=== PATIENT | female | born 1970 | race Caucasian/White ===

== ENCOUNTER 2016-07-21 22:14 | Emergency (ER) | payer OTHER ==
[~2016-07-21] VITALS: Ht 175.3 cm; Wt 98.9 kg
[2016-07-21 22:51] LABS: ABSOLUTE BASOPHIL COUNT 0 /CUMM (0.0-0.2); ABSOLUTE EOSINOPHIL COUNT 0.1 /CUMM (0.0-0.7); ABSOLUTE GRANULOCYTE CT 6.1 /CUMM (1.4-6.5); ABSOLUTE LYMPH COUNT 1.7 /CUMM (1.2-3.4); ABSOLUTE MONOCYTE COUNT 0.5 /CUMM (0.10-0.60); BASOPHIL % 0.3 % (0.0-2.0); EOSINOPHIL % 1.3 % (0-5); HEMATOCRIT 41.5 % (37-47); MEAN CORPUSCULAR HGB 31.8 PG (27.0-31.0); MEAN CORPUSCULAR HGB CONC 33.9 G/DL (33.0-37.0); MEAN CORPUSCULAR VOLUME 93.7 FL (81.0-99.0); MEAN PLATELET VOLUME 8.2 FL (7.4-10.4); PLATELET COUNT 255 /CUMM (130-400); RBC DISTRIBUTION WIDTH 13.1 % (11.5-14.5); RED BLOOD CELL CT 4.43 /CUMM (4.20-5.40); WHITE BLOOD CELL COUNT 8.5 /CUMM (4.8-10.8)
[2016-07-21 22:58] LABS: GRANULOCYTE % 72.2 % (42.2-75.2)
--- NOTE | 2016-07-21 23:33 | ED CARDIAC/CP/PALPITATIONS ---
History of Present Illness General Chief Complaint: Chest Pain Stated Complaint: CP, DIZZY, SOB, LEFT SIDED NUMB/TINGLING Source: patient Exam Limitations: no limitations Vital Signs & Intake/Output Vital Signs & Intake/Output Vital Signs Date Time Temp Pulse Resp B/P Pulse O2 O2 Flow FiO2 Ox Delivery Rate 07/22 0355 97.5 80 18 123/76 98 Room Air 07/22 0015 88 18 122/88 99 Room Air 07/21 2357 100 Room Air 07/21 2224 98.2 102 20 148/100 100 Room Air Room Air ED Intake and Output 07/22 0000 07/21 1200 Intake Total Output Total Balance Patient 218 lb Weight Allergies Coded Allergies: MDX - Clarithromycin (From BIAXIN) (Intermediate, RAPID PULSE 11/26/10) Reconcile Medications Estradiol (Vivelle-Dot) 0.05 MG/24 HOUR PATCH.TDSW MENOPAUSE (Reported) Norethindrone (Aygestin) 5 MG TABLET 1 TAB PO DAILY MENOPAUSE (Reported) Triage Note: TRIAGE: 46 Y/O FEMALE PRESENTS C/O 09/27 MIDSTERNAL CHEST PAIN, RADIATING TO LEFT RASTAFARI, LEFT JAW, LEFT ARM, LEFT PINKY. REPORTS ONSET X1 WEEK. REPORTS PAIN INCREASED AT 7PM THIS EVENING. REPORTS HAS BEEN SOB X1 WEEK WELL. REPORTS HISTORY OF ANXIETY, TOOK 0.5MG XANAX AT 1915. TOLERATED WELL. EKG COMPLETED IN [place]. Triage Nurses Notes Reviewed? yes Onset: Abrupt Duration: better Timing: single episode today Quality/Severity: moderate Location: substernal : No Patient currently breastfeeds: No HPI: Patient is a 46-year-old female with a past medical history of menopause currently taking medications of exogenous estrogen and has an anxiety disorder currently taking Xanax who presents emergency and that for a remote. Time patient has had at least once a day symptoms of anxiety such as racing heart palpitations jittery feeling and paresthesia in which today symptoms began at 1915 while patient was at rest of increased anxiety flushed sensation, left arm pain and paresthesia and chest heaviness. Patient states that the chest heaviness lasted for approximately 2 hours which has completely resolved and all symptoms have improved however patient still is complaining of mild left arm paresthesia. Patient did take Xanax at the time for his symptoms with improvement. Patient did have similar episode of severity approximate one year ago which patient was evaluated at [place] emergency room in which she was advised to follow up with cardiology which patient did follow up with Dr. Meza and received Holter monitor and stress test showing unremarkable findings. Patient does state that symptoms today were more worse and duration and severity. Patient does have a family history of myocardial infarction of father dying at the age of 64. Denies any illicit drug use denies any alcohol use or smoking history. Denies any history of DVT PE leg swelling hemoptysis Denies any fevers, chills, nausea vomiting (LEVON MINAYA) Past History Travel History Traveled to [facility] past 21 day No Medical History Any Pertinent Medical History? see below for history Psychiatric: anxiety Tetanus Vaccine: Surgical History Surgical History: non-contributory Psychosocial History What is your primary language Irish Tobacco Use: Never used ETOH Use: denies use Illicit Drug Use: denies illicit drug use Family History Hx Contributory? No (LEVON MINAYA) Review of Systems Review of Systems Constitutional: Reports: no symptoms. EENTM: Reports: no symptoms. Respiratory: Reports: see HPI. Cardiovascular: Reports: see HPI. GI: Reports: no symptoms. Genitourinary: Reports: no symptoms. Musculoskeletal: Reports: no symptoms. Skin: Reports: no symptoms. Neurological/Psychological: Reports: see HPI. Hematologic/Endocrine: Reports: no symptoms. Immunologic/Allergic: Reports: no symptoms. All Other Systems: Reviewed and Negative (LEVON MINAYA) Physical Exam Physical Exam General Appearance: well developed/nourished, no apparent distress, alert, comfortable Cardiovascular: regular rate/rhythm Comments: Well-developed well-nourished person in no acute distress HEENT: Normal EENT exam, extraocular motion intact, no nystagmus. Pupils equally round and reactive to light and accommodation. Nose is atraumatic. External auditory canal and Tympanic membranes clear. Pharynx normal. No swelling or edema. Neck: Supple, no lymphadenopathy, normal range of motion without pain or tenderness Back: Nontender, no CVA tenderness. Cardiovascular: Regular rate and rhythms no murmurs rubs or gallops, normal JVP Respiratory: Chest nontender. No respiratory distress.breath sounds clear to auscultation bilaterally Abdomen: Soft, nontender nondistended, no appreciable organomegaly. Normal bowel sounds. No ascites Extremity: No edema, no calf tenderness to palpation, normal and equal pulses. Neuro: Alert oriented x3, motor sensory normal, cranial nerves II through XII grossly intact. Skin: No appreciable rash on exposed skin, skin is warm and dry. Psych: Mood and affect is normal, memory and judgment is normal. Core Measures ACS in differential dx? Yes Severe Sepsis Present: No Septic Shock Present: No (HERBERTH MORENO,LEVON) Progress Differential Diagnosis: AMI, aortic dissection, atrial fibrillation, cholecystitis, CHF/pulm edema, costochondritis, hyperkalemia, hypovolemia, hyperthyroid, hyperventilation, intracranial hemorrhage, musculoskeletal pain, myocarditis, pancreatitis, pericarditis, pneumonia, pneumothorax, PSVT, pulmonary embolism, PUD/GERD, PVCs/PACs, respiratory failure, rib fracture, sepsis, unstable angina, V-fib/V-Tach, WPW syndrome Plan of Care: Orders Procedure Date/time Status TROPONIN LEVEL 07/22 033 Complete EKG 07/22 033 Active Add-on Test (ER Only) 07/21 2349 Active Add-on Test (ER Only) 07/21 2334 Active Add-on Test (ER Only) 07/21 2323 Active THYROID STIMULATING HORMONE 07/21 2245 Complete THYROXINE 07/21 2245 Complete HUMAN BETA HCG SCREEN 07/21 2245 Complete D-DIMER 07/21 2245 Complete TROPONIN LEVEL 07/21 222 Complete COMPREHENSIVE METABOLIC PANEL 07/21 2227 Complete CBC WITHOUT DIFFERENTIAL 07/21 2226 Complete EKG 07/21 2215 Active Laboratory Tests 07/22/16 0336: Troponin I < 0.01 07/21/16 2245: Anion Gap 12, Estimated GFR > 60, BUN/Creatinine Ratio 18.6, Glucose 132 H, Calcium 9.3, Total Bilirubin 0.4, AST 25, ALT 32, Alkaline Phosphatase 59, Troponin I < 0.01, Total Protein 6.8, Albumin 4.0, Globulin 2.8, Albumin/ Globulin Ratio 1.4, TSH 3.030, Thyroxine (T4) 7.8, Total Beta HCG NEGATIVE, D- Dimer < 200, CBC w Diff NO MAN DIFF REQ, RBC 4.43, MCV 93.7, MCH 31.8 H, RDW 13.1, MPV 8.2, Gran % 72.2, Lymphocytes % 19.9 L, Monocytes % 6.3, Eosinophils % 1.3, Basophils % 0.3, Absolute Granulocytes 6.1, Absolute Lymphocytes 1.7, Absolute Monocytes 0.5, Absolute Eosinophils 0.1, Absolute Basophils 0, PUBS MCHC 33.9 Patient currently is in no apparent distress. Patient was put on bus driver/monitor noted to be in normal sinus rhythm pressure was noted to be 122/88 manually by nursing staff Patient's first set of cardiac enzyme was unremarkable delarosa for patient will require 2 sets. D-dimer currently is pending Patient does not complain of any chest pain currently D-dimer was negative essentially ruling out pulmonary embolism. Patient will require second set of cardiac enzymes in which at 0330 repeat EKG and troponin was ordered. I discussed hand off with Dr. Holder who is aware of disposition and plan (LEVON MINAYA) Initial ED EKG: SINUS RHYTHM NOTED AT 102 BPM Prior EKG: unchanged Hand-Off Endorsed To: ANIA HOLDER MD Endorsed Time: 0048 Pending: labs (LEVON MINAYA) Diagnostic Imaging: Discussed w/RAD: Radiology Read. 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 Repeat EKG and troponin are unchanged. (FILIPPO DOWNING,ANIA Alexander) Departure Departure Disposition: HOME OR SELF CARE Condition: Stable Clinical Impression Primary Impression: Anxiety Secondary Impressions: Heart palpitations Referrals: YISEL LOPES MD (PCP/Family) Referred to [facility] as new patient No Departure Forms: Customer Survey General Discharge Information (LEVON MINAYA) Departure Additional Instructions: As discussed, continue home medications as directed. Follow-up tomorrow with your multifocal button inspector for further evaluation treatment. Notify your primary care doctor of this emergency department visit and treatment plan. Return to emergency room if symptoms worsen or if you develop any concerning new symptoms. (FILIPPO DOWNING,ANIA Alexander) Critical Care Note Critical Care Note Critical Care Time: non-applicable (LEVON MINAYA)
[2016-07-21] MEDS ORDERED: VIVELLE-DOT1 EAC1 (23:55)
[2016-07-21] MEDS ORDERED: AYGESTIN5 MG PO (23:57)
--- NOTE | 2016-07-22 01:24 | RADIOLOGY REPORT ---
EXAMINATION: XR CHEST, 2 VIEWS CLINICAL INFORMATION: Chest heaviness COMPARISON: 07/25/2015 TECHNIQUE: PA and lateral views of the chest were obtained. FINDINGS: Mild linear atelectasis is present at the left midlung. Lungs are otherwise clear. No consolidation, pneumothorax, or pleural effusion. Cardiac and mediastinal contours are normal. Pulmonary vasculature is normal. Mild degenerative spondylosis in the thoracic spine. IMPRESSION: No acute pulmonary findings.
[2016-07-22 03:55] VITALS: BP 123/76
== END 2016-07-22 04:57 ==
LOC: ERH 22:14
PROVIDERS: Physician Assistant Medical
DX: R07.89 Other chest pain (principal); F41.9 Anxiety disorder, unspecified; R00.2 Palpitations
CPT/HCPCS: 93005; 93010